=== PATIENT | male | born 2000 | race Caucasian/White ===

== ENCOUNTER 2022-03-26 18:24 | Emergency (ER) | payer OTHER ==
[~2022-03-26] VITALS: Ht 172.7 cm; Wt 54.5 kg
[2022-03-26] MEDS ORDERED: AMOX500C2 PO (19:24)
[2022-03-26 19:30] VITALS: BP 145/89
== END 2022-03-26 21:37 | disposition home or self-care (01) ==
LOC: EMS 18:24
DX: K05.00 Acute gingivitis, plaque induced (principal); F12.90 Cannabis use, unspecified, uncomplicated; Z98.818 Other dental procedure status
CPT/HCPCS: 99283; Z7502